=== PATIENT | female | born 1950 | race Caucasian/White ===

== ENCOUNTER 2022-05-31 05:54 | Day surgery (SDC) | payer MEDICARE, BC, SELFPAY ==
[2022-05-31 06:21] VITALS: BMI 30.8
[2022-05-31 06:39] VITALS: BP 154/68; PULSE 56; RESP 16; TEMP 36.7; O2SAT 95
[2022-05-31] MEDS: LACTATED RINGERS 1000 ML 1,000 ML 100 ML IV (06:42)
[2022-05-31] MEDS: SODIUM CHLORIDE 0.9 % (FLUSH) 10 ML SYRINGE IVF (06:42)
--- NOTE | 2022-05-31 06:52 | CRLHL7_ITS ---
For Patients: As a result of the Cures Act, medical imaging exams and procedure reports are released immediately into your electronic medical record. You may view this report before your referring provider. If you have questions, please contact your health care provider. Indication: 2ND AND 3RD HAMMERTOE REPAIR Technique: AP fluoroscopic image right foot. Fluoroscopic time 6.3 seconds. IMPRESSION: Fluoroscopic guidance for 2nd and 3rd hammertoe repair procedure. Dictated by Jose Manuel Hightower MD @ 05/31/2022 10:05:26 AM (Electronically Signed)
[2022-05-31] MEDS: CEFAZOLIN 1 GM inj IVP (07:25)
--- NOTE | 2022-05-31 08:04 | SUR.OPER ---
PATIENT QUESTIONS ANSWERED SATISFACTORILY PREOPERATIVELY. PATIENT BROUGHT TO OR #4 PER CART. Patient positioned supine on OR #4 bed. Perioperative team supported arms bilaterally on arm boards. Final approval of positioning by surgeon.
--- NOTE | 2022-05-31 08:29 | SUR.OPER ---
RIGHT FOOT IRRIGATION AT 08:29.
--- NOTE | 2022-05-31 09:03 | PM.ONB ---
Brief Operative Note Date of procedure: 05/31/22 Pre-op diagnosis: Hammertoes right foot digits 2, 3, 4 Implants: 0.045 smooth k-wires x 2, 2.0mm twist off screws Anesthesia: MAC Surgeon: Ricardo Norris Estimated blood loss (mL): 2 Tourniquet time (min): 77 Condition: stable Disposition: same day
[2022-05-31 09:10] VITALS: BP 123/75; PULSE 56; RESP 14; TEMP 36.1; O2SAT 96
--- NOTE | 2022-05-31 09:10 | W.ANESCHARGE ---
Anesthesia Charges Start Date/Time Anesthesia Start Date: 05/31/22 Anesthesia Start Time: 07:21 Stop Date/Time Anesthesia Stop Date: 05/31/22 Anesthesia Stop Time: 09:10 Summary Emergency: No Extremes of Age: Over 69-CPT 52190
[2022-05-31 09:15] VITALS: BP 133/67; PULSE 54; RESP 14; O2SAT 98
[2022-05-31 09:30] VITALS: BP 144/78; PULSE 54; RESP 16; O2SAT 98
[2022-05-31 09:45] VITALS: BP 141/76; PULSE 54; RESP 16; O2SAT 97
--- NOTE | 2022-05-31 10:06 | SUR.OPER ---
TIME OUT AT 07:27 PRIOR TO LOCAL INJECTION.
--- NOTE | 2022-05-31 21:28 | P.GSOP_ITS ---
Operative Note Date of procedure: 05/31/22 Type of Procedure: 1. Mili osteotomy 2nd metatarsal right 2. Hammertoe correction 2nd toe right 3. Hammertoe correction 3rd toe right 4. Flexor tenotomy 4th toe right Procedure Description: The patient was brought to the operating room and placed on the operating table in supine position.? Care was taken to pad the patient's pressure points.?? The patient was then placed under sedation by anesthesia and local anesthesia administered. The operative site was then prepped and draped in the usual sterile fashion.? A time-out was then performed. The right foot was exsanguinated and the tourniquet inflated to 250mmHg. Small stab incision made plantar 4th toe just distal to the PIPJ with [address] [place] [place] blade. The flexor tendon was transected completely. The toe position improved significantly. Linear incision made to the dorsal 3rd digit PIPJ. Incision taken down to the joint capsule. Transverse incision made through the extensor tendon and joint capsule. Medial and lateral collateral ligaments released. Sagittal saw was used to resect the head of the proximal phalanx and the base of the middle phalanx. The fusion was fixated with a 0.045 smooth k-wire. Position confirmed with c-arm. Linear incision made to the dorsal 2nd MPJ extending distal over the 2nd PIPJ. Blunt dissection carried down to the extensor tendon and joint capsule. Transverse incision made through the extensor tendons and dorsal joint capsule. The medial and lateral capsule were released. Next a Mili osteotomy performed with the capital fragment shifted 2mm proximal and 3mm medial. It was fixated with two 2.0mm twist off screws. The dorsal overhang was removed with a rongeur. The toe was now in recuts position in sagittal plane and improved in transverse plane. Transverse incision made through the extensor tendon and joint capsule at PIPJ. Medial and lateral collateral ligaments released. Sagittal saw was used to resect the head of the proximal phalanx and the base of the middle phalanx. The fusion was fixated with a 0.045 smooth k-wire. Position confirmed with c-arm. The plantar lateral and lateral joint capsule repaired with 2-0 fiberwire. The toe now rested in rectus position on all planes. K-wires were bent, cut and capped. C-arm images confirmed appropriate repair. Incisions thoroughly irrigated with normal saline. Extensor tendons at the PIPJ were repaired with 4-0 Vicryl. subcutaneous tissue repaired with 4-0 monocryl and skin closed with 4-0 prolene. Sterile dressing applied. tourniquet released and normal CFT returned to all digits. Well padded CAM boot placed. Transported [facility] [place] to [facility] with VSS and vascular status intact to right foot. The patient tolerated the procedure well. Discharge per anesthesia. Oxycodone for pain. WBAT to the heel. Follow up in clinic in 2 days. Ricardo Norris DPM FACFAS Implants: 0.045 smooth k-wires x 2, Arthrex 2.0mm twist off screws x2. Anesthesia: MAC Surgeon: Ricardo Norris DPM Estimated blood loss (mL): 2 Condition: stable Disposition: same day
== END 2022-05-31 10:39 | disposition home or self-care (01) ==
PROVIDERS: Visit Provider Podiatrist
PROC: (CPT 28285; principal; 2022-05-31 07:15)
PROC: (CPT 28285; 2022-05-31 07:15)
DX: M20.41 Other hammer toe(s) (acquired), right foot (principal)
CPT/HCPCS: 28285 ×3; 01462; 73620; 76000; 97161; 99100; C1713; J0690; J2250; J2405; J2704; J3010; J7120

== ENCOUNTER 2025-10-11 09:45 | Emergency (ER) | payer MEDICARE, BC, SELFPAY ==
[2025-10-11] VITALS (9 sets, daily range): BP systolic 179–188; BP diastolic 84–99; PULSE 45–52; RESP 15–25; TEMP 36.5; O2SAT 92–97; BMI 31.1
--- OUTSIDE RECORDS SUMMARY | 2025-10-11 09:47 | XMS_ITS | Clinical Summary ---
Author Organization [facility] Address [address] [place] [id number] Care Team Providers Care Dental Laboratory Technology Teacher Name Role Phone Rhys Kathleen RD Unavailable [phone] Symone So Unavailable Donna Garnica DO Primary Care Provider [phone] Allergies Active Allergy Reactions Criticality Noted Date Comments Unlisted Allergen (Include Detail In Comments) Hives 03/10/2017 Cats, dogs; Seasonal, gets hives in the summer Medications cholecalciferol (VITAMIN D) 1,000 unit capsule Take 1 capsule by mouth once daily. 0 016 Active albuterol HFA (Ventolin HFA) 90 mcg/actuation inhalerIndication s:FLORES (dyspnea on exertion) Inhale 1 Puff by mouth 4 times daily if needed for Shortness Of Breath or Wheezing. 1 Each 1 025 Active triamcinolone (ARISTOCORT; KENALOG) 0.1 % creamIndications: Chronic dermatitis Apply topically to affected area(s) two times daily. Up to 2 weeks for rash 45 g 025 Active budesonide-formot Jess (SYMBICORT,BREYNA ) 160-4.5 mcg/actuation (160-4.5 mcg each actuation) inhalerIndication s:FLORES (dyspnea on exertion) INHALE 2 PUFFS TWICE DAILY, RINSE MOUTH AFTER USING. 10.2 Each 6 025 Active Wegovy 0.25 mg/0.5 mL subcutaneous penIndications:Cl ass 1 obesity with body mass index (BMI) of 30.0 to 30.9 in adult, unspecified obesity type, unspecified whether serious comorbidity present Inject 0.25 mg subcutaneous once weekly. 2 mL 025 Active hydroCHLOROthiazi de 25 mg tabletIndications :Essential hypertension Take 1 Tablet (25 mg) by mouth once daily. 100 Tablet 1 025 Active atorvastatin (LIPITOR) 40 mg tabletIndications :Mixed hyperlipidemia TAKE 1 TABLET BY MOUTH AT BEDTIME 90 Tablet 1 025 Active atorvastatin 40 mg tabletIndications :Mixed hyperlipidemia TAKE 1 TABLET BY MOUTH AT BEDTIME 90 Tablet 1 025 2024 Discontinued Active Problems Problem Noted Date Diagnosed Date Moderate mitral regurgitation 06/25/2025 Overview (06/25/2025): Echocardiogram 06/2025 Vaping nicotine dependence, tobacco product 04/2025 Pulmonary nodules 08/26/2022 Overview (08/31/2023): CT 08/2022 stable. Repeat 08/30/23 stable, repeat in 9 months May 2024 Ascending aorta dilatation 08/05/2022 Overview (06/25/2025): Stress echocardiogram 07/2022. 4.2cm. annual echocardiogram. Vapes nicotine containing substance 06/18/2021 Essential hypertension 06/18/2021 Venous stasis 03/24/2017 Personal history of colonic polyps 07/12/2014 Overview (08/14/2024): Colonoscopy 06/2014 normal repeat in 5 years Colonoscopy 07/2019 normal, repeat in 5 years Colonoscopy 07/2024 normal, repeat in 10 years S/P hysterectomy 07/24/2013 Hyperlipidemia 03/24/2013 Vitamin D deficiency 04/21/2011 Uterine fibroid Overview (03/05/2009): s/p hysterectomy Rotator cuff (capsule) sprain and strain Overview (04/23/2009): R Resolved Problems Problem Noted Date Diagnosed Date Resolved Date Tobacco use disorder 03/05/2009 011 Tobacco use disorder 016 Major depression in remission 06/18/2021 Encounters Date Type Department Care Team Description 10/06/2025 Refill [facility] [address] [place] [address] Donna Garnica DO Refill Request (Atorvastatin) 09/16/2025 8:40 AM [facility] Orders Only [facility] [address] [facility] [address] [place] [address] <No scans attached> 09/16/2025 8:00 AM [facility] Ancillary Procedure [facility] [address] [facility] [address] [place] [address] 09/16/2025 Travel 09/11/2025 Travel 08/28/2025 Refill [facility] [address] [place] [address] Donna Garnica, Refill Request (Hydrochlorothiazide) 07/29/2025 Telephone [facility] [address] [place] [address] Symone So PA Prior Authorization (Wegovy 0.25 mg/0.5 mL subcutaneous pen APPROVED 06/29/25-01/25/26) 07/25/2025 10:30 AM CDT Office Visit [facility] [address] [facility] [place] [address] Symone So PA Consult (Initial) 07/24/2025 Travel from Last 3 Months Immunizations Immunization Administration Dates Next Due COVID-19 VACCINE SPIKEVAX (M ODERNA 50MCG/0.5ML) 12YO+ PFS 01/27/2024 COVID-19 vaccine (Moderna 100mcg/0.5mL) PF, MDV 02/05/2021,01/08/2021 COVID-19 vaccine (Moderna Pedro Pablo doris 50mcg/0.25mL) PF, MDV 05/14/2022 Influenza, High-dose Inactivated 024,08/10/2019,09/25/2018,08/27,09/13/2016,12/03/2015,09/05/2014 Influenza, High-dose Quadriv alent Inactivated 09/28/2020 Influenza, IIV3 (Age >=3 years) 07/24/2013,10/21 Influenza, Inactivated AIIV4 (Age 65+ Years) Preserv Free 01/27/2024,08/05/2022,09/16/2021 Pneumococcal Poly,23-Valent (Pneumovax) 10/28/2014 Pneumococcal conj 13-Valent (Prevnar 13) 12/03/2015 RSV, Recombinant ADJ Reconst ituted (Arexvy 120MCG/0.5mL) 11/09/2024 Td (Age >=7 Years) 04/02/2005 Tdap 05/14/2022,04/16/2011 Zoster (Shingrix-RZV, recombinant) 05/14/2022 Zoster (Zostavax-ZVL, live) 09/05/2014 Family History Medical History Relation Name Comments Alcoholism Father Heart Disease Father Hyperlipidemia Father Hypertension Father Cancer-breast Mother age 45, a t 72 Cancer Other cousin Genetic Other HTN- father, ao rtic aneurym, CHF Cancer-breast Sister Lindsey Heart Disease Sister Lindsey A Fib Anesthesia Malignant Hyperthermia No Family History Blood Disease No Family History Clotting disorder No Family History Relation Name Status Comments Father Mother Other Sister Lindsey Social History Tobacco Use Types Packs/Day Years Used Date Smoking Tobacco: Former Cigarettes 1 30 1 4 - 2013 Passive Smoke Exposure: Past Smokeless Tobacco: Never Tobacco Cessation:Counseling Given: Not Answered Comments:Smokes the Ecig Alcohol Use Standard Drinks/Week Comments Yes 0 (1 standard drink = 0.6 oz pur e alcohol) occ/social PHQ-2 Answer Date Recorded PHQ-2 TOTAL SCORE 0 06/03/2025 Social Connections Answer Date Recorded Do you often feel lonely or isolated from those around you? 0 11/19/2024 Alcohol Use Answer Date Recorded How often do you have a drink containing alcohol ? 1 07/25/2025 How many drinks containing a lcohol do you have on a typical day when you are drinking? 0 07/25/2025 How often do you have five or more drinks on one occasion? 0 07/25/2025 Financial Resource Strain Answer Date R ecorded Difficulty of Paying Living Expenses 3 11/19/2024 Difficulty of Paying Living Expenses Not on file 11/19/2024 Food Insecurity Answer Date Recorded Do you worry your food will run out before you are able to buy more? 1 11/19/2024 Transportation Needs Answer Date Record ed Does lack of transportation keep you from medica l appointments? 1 11/19/2024 Does lack of transportation keep you from work, meetings or getting things that you need? 1 11/19/2024 Housing Stability Answer Date Recorded What is your housing situation today? 1 11/19/2024 Utilities Answer Date Recorded Do you have trouble paying f or utilities (for example, heat, electricity, water, phone)? 1 11/19/2024 Comments No Sex and Gender Information Value Date Recorded Sex Assigned at Not on file Legal Sex Female 5:25 AM [facility] [employer] Gender Identity Not on file Sexual Orientation Not on file Obstetrics History Para Term AB IAB SAB Ectopic Multiple Livin g Live Births 6 6 6 0 0 3 Date Outcome GA Total Labor Labor/2nd/3rd Weight Sex Type Anes PTL Amarilys A1 A5 Name Clin Term Term Term Term Term Term Last Filed Vital Signs Vital Sign Reading Time Taken Comments Blood Pressure 138/76 06/10/2025 11:24 AM CDT Pulse 66 06/04/2025 1:21 PM CDT Temperature 36.6 C (97.8 F) 03/01/2025 2:55 PM CDT Respiratory Rate 16 06/03/2025 2:49 PM CDT Oxygen Saturation 96% 06/03/2025 2:49 PM CDT Inhaled Oxygen Concentration - - Weight 83.6 kg (184 lb 3.2 oz) 07/25/2025 10:00 AM CDT Height 165.1 cm (5' 5) 07/25/2025 10:00 AM CDT Body Mass Index 30.65 07/25/2025 10:00 AM CDT Plan of Treatment Health Maintenance Due Date Last Done Comments Zoster (shingles) series for age 50+ (3 of 3) 07/09/2022 05/14/2022, 09/05/2014 Influenza Vaccine (#1) 2025 , 01/27/2024, 08/05/2022, Additional history exists Depression screening for age 12+ 06/04/2026 06/04/2025, 06/03/2025, 05/29/2025, Additional history exists Medicare Wellness for age 65+ 06/04/2026 06/03/2025, 01/27/2024, 07/14/2022, Additional history exists BMI (ht and wt on same day) for age 18+ 07/25/2026 07/25/2025, 06/10/2025, 06/03/2025, Additional history exists Low Dose CT (for lung CA) age 50-80 09/16/2026 09/16/2025, 10/08/2024, 08/30/2023, Additional history exists Tetanus booster 05/14/2032 05/14/2022, 06/01/2011, 04/02/2005 DEXA/DXA scan for age 65+ Completed 10/29/2014 Hepatitis C screening for age 18-79 Completed 12/03/2015 Pneumococcal series for age 50+ Completed 12/03/2015, 10/28/2014 RSV vaccine for adults or Completed 11/09/2024 Hepatitis B series for 19+ Aged Out N o longer eligible based on patient's age to complete this topic Procedures Procedure Name Priority Date/Time Associated Diagnosis Comments CT CHEST W Routine 09/16/2025 8:38 AM [facility] Ascending aorta dilatation CREATININE,ISTAT Routine 09/16/2025 8:10 AM [facility] Observation or evaluation for suspected condition HEMOGLOBIN Routine 07/25/2025 12:02 PM CDT Class 1 obesity with body mass index (BMI) of 30.0 to 30.9 in adult, unspecified obesity type, unspecified whether serious comorbidity present VITAMIN B12 Routine 07/25/2025 12:02 PM CDT Class 1 obesity with body mass index (BMI) of 30.0 to 30.9 in adult, unspecified obesity type, unspecified whether serious comorbidity present TSH WITH REFLEX Routine 07/25/2025 12:02 PM CDT Class 1 obesity with body mass index (BMI) of 30.0 to 30.9 in adult, unspecified obesity type, unspecified whether serious comorbidity present Abnormal weight gain INSULIN Routine 07/25/2025 12:02 PM CDT Class 1 obesity with body mass index (BMI) of 30.0 to 30.9 in adult, unspecified obesity type, unspecified whether serious comorbidity present VITAMIN D 25 (DEFICIENCY) Routine 07/25/2025 12:02 PM CDT Class 1 obesity with body mass index (BMI) of 30.0 to 30.9 in adult, unspecified obesity type, unspecified whether serious comorbidity present ANTI HCV Routine 12/03/2015 12:01 PM [facility] Need for hepatitis C screening test XR DXA BONE DENSITY 2 SITES AXIAL Routine 10/29/2014 8:55 AM [facility] Post-menopausal from Last 3 Months or Most Recently Relevant to Health Maintenance Results * CT CHEST W (09/16/2025 8:38 AM [facility]) Anatomical Region Laterality Modality CHEST, THORAX, HEART Computed To mography 09/16/2025 9:34 AM [facility] Impressions 09/16/2025 9:34 AM [facility] 1. 4.2 centimeter ascending thoracic aortic aneurysm stable. Additional stable pulmonary nodules without enlarging nodules. [employer] GUID[employer]INES - SOLID NODULES: SINGLE LOW RISK - nodule less than 6 mm: No routine follow-up. - nodule 6-8 mm: CT at 6-12 months, then consider CT at 18-24 months. - nodule greater than 8 mm: Consider CT at 3 months, PET/CT or tissue sampling. SINGLE HIGH RISK - nodule less than 6 mm: Optional CT at 12 months. - nodule 6-8 mm: CT at 6-12 months, then CT at 18-24 months. - nodule greater than 8 mm: Consider CT at 3 months, PET/CT or tissue sampling. MULTIPLE LOW RISK - nodule less than 6 mm: No routine follow-up. - nodule 6-8 mm: CT at 3-6 months, then consider CT at 18-24 months. - nodule greater than 8 mm: CT at 3-6 months, then consider CT at 18-24 months. MULTIPLE HIGH RISK - nodule less than 6 mm: Optional CT at 12 months. - nodule 6-8 mm: CT at 3-6 months, then at 18-24 months. - nodule greater than 8 mm: CT at 3-6 months, then at 18-24 months. Please note that all CT scans at this facility use dose modulation, iterative reconstruction, and/or weight-based dosing when appropriate to reduce radiation dose to as low as reasonably achievable. Dictated by Arabella Heard MD @ 09/16/2025 9:34:55 AM (Electronically Signed) Narrative 09/16/2025 9:34 AM [facility] For Patients: As a result of the Cures Act, medical imaging exams and procedure reports are released immediately into your electronic medical record. You may view this report before your referring provider. If you have questions, please contact your health care provider. INDICATION: Ascending aorta dilatation TECHNIQUE: CT chest was acquired with 100 cc Omnipaque 350 IV contrast. Coronal and MIP reconstructions were performed. COMPARISON: CT 10/08/2024 FINDINGS: Lungs and pleura: Emphysema. 1.2 centimeter left lower lobe nodule stable 8/113. Seven millimeter subpleural left lower lobe nodule 8/110 stable. Small nodules are unchanged. A few additional Heart and vasculature: Heart size is normal. Ascending thoracic aortic aneurysm measuring 4.2 centimeters unchanged. Lymph nodes/mediastinum: No mediastinal, hilar, or axillary adenopathy. Chest wall: No masses. Upper abdomen: Small low-attenuation lesion right kidney probably reflects a small cyst Bones: Unremarkable for age. Procedure Note Arabella Heard MD - 09/16/2025 For Patients: As a result of the Cures Act, medical imagingexams and procedure reports are released immediately into your electronicmedical record. You may view this report before your referring provider.If you have questions, please contact your health care provider. INDICATION: Ascending aorta dilatation TECHNIQUE: CT chest was acquired with 100 cc Omnipaque 350 IV contrast. Coronal andMIP reconstructions were performed. COMPARISON: CT 10/08/2024 FINDINGS: Lungs and pleura: Emphysema. 1.2 centimeter left lower lobe nodule stable 8/113. Seven millimetersubpleural left lower lobe nodule 8/110 stable. Small nodules areunchanged. A few additional Heart and vasculature: Heart size is normal. Ascending thoracic aorticaneurysm measuring 4.2 centimeters unchanged. Lymph nodes/mediastinum: No mediastinal, hilar, or axillary adenopathy. Chest wall: No masses. Upper abdomen: Small low-attenuation lesion right kidney probably reflectsa small cyst Bones: Unremarkable for age. IMPRESSION: 1. 4.2 centimeter ascending thoracic aortic aneurysm stable. Additionalstable pulmonary nodules without enlarging nodules. [employer] GUIDELINES - SOLID NODULES: SINGLE LOW RISK - nodule less than 6 mm: No routine follow-up. - nodule 6-8 mm: CT at 6-12 months, then consider CT at 18-24 months. - nodule greater than 8 mm: Consider CT at 3 months, PET/CT or tissuesampling. SINGLE HIGH RISK - nodule less than 6 mm: Optional CT at 12 months. - nodule 6-8 mm: CT at 6-12 months, then CT at 18-24 months. - nodule greater than 8 mm: Consider CT at 3 months, PET/CT or tissuesampling. MULTIPLE LOW RISK - nodule less than 6 mm: No routine follow-up. - nodule 6-8 mm: CT at 3-6 months, then consider CT at 18-24 months. - nodule greater than 8 mm: CT at 3-6 months, then consider CT at 18-24months. MULTIPLE HIGH RISK - nodule less than 6 mm: Optional CT at 12 months. - nodule 6-8 mm: CT at 3-6 months, then at 18-24 months. - nodule greater than 8 mm: CT at 3-6 months, then at 18-24 months. Please note that all CT scans at this facility use dose modulation,iterative reconstruction, and/or weight-based dosing when appropriate toreduce radiation dose to as low as reasonably achievable. Dictated by Arabella Heard MD @ 09/16/2025 9:34:55 AM (Electronically Signed) us Donna Garnica DO CT Final Resul t * POCT Creatinine (09/16/2025 8:10 AM [facility]) POCT,CREATININ E, ISTAT 1.0 0.6 - 1.3 mg/dL 09/16/2025 8:22 AM [facility] Blood BLOOD SPECIMEN / Unknown [facility] / Unknown 09/16/2025 8:10 AM [facility] 09/16/2025 8:12 AM [facility] Donna Rm Nahun DO CHEMISTRY Final Resul t Performing Organization Address [facility] Co de Phone Number [facility] [address] [address], [facility] [address] [place] [address], [place] * TSH WITH REFLEX (07/25/2025 12:02 PM CDT) TSH W/REFLEX TO FT4 1.55 0.40 - 4.50 mIU/L 07/26/2025 4:53 AM CDT [facility] Blood BLOOD SPECIMEN / Unknown [facility] / Unknown 07/25/2025 12:02 PM CDT 07/25/2025 12:05 PM CDT Symone So PA CHEMISTRY F inal Result Performing Organization Address [facility] Co de Phone Number [email or web address] [address] [address], * VITAMIN D 25 (DEFICIENCY) (07/25/2025 12:02 PM CDT) VITAMIN D,25-OH,TOTAL,IA 56 30 - 100 ng/mL 07/26/2025 4:53 AM CDT [facility] Comment: Vitamin D Status 25-OH Vitamin D: Deficiency: <20 ng/mL Insufficiency: 20 - 29 ng/mL Optimal: > or = 30 ng/mL For 25-OH Vitamin D testing on patients on D2-supplementation and patients for whom quantitation of D2 and D3 fractions is required, the [facility](TM) 25-OH VIT D, (D2,D3), LC/MS/MS is recommended: order code [id number] (patients >2yrs). See Note 1 Note 1 For additional information, please refer to http://education.[employer]/faq/GPP927 (This link is being provided for informational/ educational purposes only.) Blood BLOOD SPECIMEN / Unknown [facility] / Unknown 07/25/2025 12:02 PM CDT 07/25/2025 12:05 PM CDT Symone DINERO SEND OUTS F inal Result Performing Organization Address City/[facility]/ZIP Co de Phone Number [facility] [address] [address], * HEMOGLOBIN (07/25/2025 12:02 PM CDT) HEMOGLOBIN 14.8 11.7 - 15.5 g/dL 07/26/2025 3:22 AM CDT [facility] MCV 88.4 80.0 - 100.0 fL 07/26/2025 3:22 AM CDT [facility] Blood BLOOD SPECIMEN / Unknown [facility] / Unknown 07/25/2025 12:02 PM CDT 07/25/2025 12:05 PM CDT us Symone DINERO HEMATOLOGY F inal Result Performing Organization Address [facility] de Phone Number [facility] [address] [address], * INSULIN (07/25/2025 12:02 PM CDT) INSULIN 10.9 uIU/mL 07/26/2025 1:59 PM CDT [facility] Comment: Reference Range < or = 18.4 Risk: Optimal < or = 18.4 Moderate NA High >18.4 Adult cardiovascular event risk category cut points (optimal, moderate, high) are based on Insulin Reference Interval studies performed at [facility] [facility] in 2021. Blood BLOOD SPECIMEN / Unknown [facility] / Unknown 07/25/2025 12:02 PM CDT 07/25/2025 12:05 PM CDT Symone DINERO SEND OUTS F inal Result Performing Organization Address [facility] Co de Phone Number [employer] [address] [address], [place] [phone] * VITAMIN B12 (07/25/2025 12:02 PM CDT) Pathologist [facility] VITAMIN B12 518 200 - 1100 pg/mL 07/26/2025 4:46 AM CDT [facility] Blood BLOOD SPECIMEN / Unknown [facility] / Unknown 07/25/2025 12:02 PM CDT 07/25/2025 12:05 PM CDT Symone DINERO CHEMISTRY F inal Result Performing Organization Address [facility] de Phone Number [employer] [address] [address], [place] [phone] * ANTI HCV [35642.2] (12/03/2015 12:01 PM [facility]) [facility] HEPATITIS C ANTIBODY Non-Reacti ve Non-Reacti ve 12/03/2015 7:51 PM [facility] Blood specimen (specimen) BLOOD SPECIMEN / Unknown [facility] / Unknown 12/03/2015 12:01 PM [facility] 12/03/2015 12:02 PM [facility] Narrative [facility] 12/03/2015 7:51 PM [facility] Antibodies to HCV not detected; does not exclude the possibility of exposure to HCV. Belle Hammer MD SEND OUTS Final Result Performing Organization Address [facility] Co de Phone Number [facility] [address] [place] [address], [place] * (ABNORMAL) XR DXA BONE DENSITY 2 SITES (10/29/2014 8:55 AM [facility]) Anatomical Region Laterality Modality Spine, HIPS, HIPL, HIPR Other Narrative 11/06/2014 10:57 AM [facility] Please see scanned document for results of this study. Procedure Note Pastora Helms PA - 11/06/2014 Please see scanned document for results of this study. us Belle aHmmer MD DEXA Final Result from Last 3 Months or Most Recently Relevant to Health Maintenance Insurance MEDICARE PB ONLY MEDICARE PART B HB ONLY Member Subscriber Plan / Payer (Ef fective 2014-Present) Name:Brett Villarrealyne Member ID:[id number] Relation to Subscriber:Self Name:Brett Villarrealyne Subscriber ID:[id number] Payer ID:Not on file Type:Not on file Address: ATTN: CLAIMS [address] [place] [phone] MEDICARE PART A HB ONLY BLUE [facility] [place] [address] Advance Directives Documents on File Type Date Recorded Patient Ancillary Services Manager Therapy Expl anation Healthcare Directive 06/05/2024 024 Care Teams Dental Laboratory Technology Teacher Relationship Specialty [place] [address] [place] [address] PCP - General Family Practice 09/16/[address] [place], [place] [id number] Department Secretary 08/26/25 Symone So PA [address] [facility] [address] [place], [place] [id number] Physician [employer] 07/25/25
--- NOTE | 2025-10-11 10:20 | CRLHL7_ITS ---
For Patients: As a result of the Century Cures Act, medical imaging exams and procedure reports are released immediately into your electronic medical record. You may view this report before your referring provider. If you have questions, please contact your health care provider. Indication: ABD PAIN. HX OF ANEURYSM Technique: CTA chest/abdomen/pelvis, aortic dissection protocol, with unenhanced CT of the chest and CTA chest/abdomen/pelvis utilizing 95 mL Isovue 370 Comparison: CT chest on September 16, 2025 Findings: Heart/vasculature: The heart is normal in size. No pericardial effusion. Coronary artery and aortic valve calcifications. No intramural hematoma of the thoracic aorta. No pulmonary embolism. Redemonstration of similar appearing aneurysmal dilatation of the ascending thoracic aorta measuring approximately 4.2 centimeters in AP dimension. There is no dissection, aneurysm, pseudoaneurysm, penetrating atherosclerotic ulcer, acute arterial occlusion, or rate limiting stenosis. Mild to moderate calcified and noncalcified atherosclerosis throughout the arterial system without significant stenosis. 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 Chest: No thyroid nodules. No thoracic lymphadenopathy. No focal airspace consolidation, pleural effusion, or pneumothorax. Minimal bibasilar linear atelectasis/scarring. Stable mild emphysematous changes. Stable 1.2 centimeter solid pulmonary nodule in the left lower lobe and additional smaller pulmonary nodules bilaterally, unchanged. Minimal mucosal secretions in the left of midline upper trachea; otherwise, the airways are clear. Abdomen/pelvis: The liver, gallbladder and biliary system, spleen, pancreas, and adrenal glands are unremarkable. Small splenule near the splenic hilum. The kidneys are normal in size and perfuse in a normal fashion. Low-density 1.3 centimeter right renal lesion with some questionable internal enhancing components, indeterminate. No renal calculi or hydroureteronephrosis. The bladder is unremarkable. Status post hysterectomy. No suspicious adnexal lesions. Tiny hiatal hernia. No evidence of bowel obstruction or inflammation. The appendix is normal. No free air, free fluid, or abscess. No abdominopelvic lymphadenopathy. Soft tissues/musculoskeletal: Tiny fat containing umbilical hernia and small fat containing right inguinal hernia. No acute fracture or malalignment. Mild multilevel degenerative changes throughout the spine with degenerative grade 1 anterolisthesis of L4 on L5. No suspicious osseous lesions. Impression: 1. No CT evidence of an acute process involving the chest, abdomen, or pelvis; specifically, no evidence of acute aortic syndrome. 2. Low-density 1.3 centimeter right renal lesion with some questionable internal enhancing components, indeterminate. Recommend correlation with prior imaging; otherwise, recommend outpatient CT or MR with a renal protocol for further assessment. 3. Stable pulmonary nodules. 4. No lymphadenopathy. Please note that all CT scans at this facility use dose modulation, iterative reconstruction, and/or weight-based dosing when appropriate to reduce radiation dose to as low as reasonably achievable. Dictated by Rodney Renae MD @ 10/11/2025 11:30:07 AM (Electronically Signed)
--- NOTE | 2025-10-11 10:21 | ED.ABDPAIN ---
HPI - Abdominal Pain General Chief Complaint: Abdominal Pain Stated Complaint: abdominal pain Time Seen by Provider: 10/11/25 09:52 History of Present Illness HPI narrative: This 75-year-old female comes in reporting upper epigastric abdominal pain that awoke her this morning. She states that it is a constant pain and it feels like somebody kicked her in the stomach. She rates that at 8/10 in severity. She does not report any fevers, nausea, vomiting, diarrhea, or shortness of breath. 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 She had a follow-up checkup a couple months ago and everything was stable in that regard. She arrives here with normal vital signs. She does have bradycardia but this is not new for her. Her blood pressure is elevated on arrival. Related Data Home Medications ?Medication ?Instructions ?Recorded ?Confirmed albuterol sulfate 90 mcg/actuation 1 inh inhalation QID PRN shortness 05/28/22 05/31/22 aerosol inhaler of breath or wheezing atorvastatin 40 mg tablet (Lipitor) 40 mg PO DAILY 05/28/22 05/31/22 cholecalciferol (vitamin D3) 25 1,000 unit PO DAILY 05/28/22 05/31/22 mcg (1,000 unit) capsule hydrochlorothiazide 25 mg tablet 25 mg PO DAILY 05/28/22 05/31/22 Previous Rx's ?Medication ?Instructions ?Recorded ketorolac 10 mg tablet 10 mg PO TID 5 days #15 tabs 10/11/25 pantoprazole 20 mg tablet,delayed 20 mg PO DAILY #20 tabs 10/11/25 release (Protonix) Allergies Allergy/AdvReac Type Severity Reaction Status Date / Time cat dander Allergy Verified 10/11/25 12:17 dog dander Allergy Verified 10/11/25 12:17 Review of Systems Status of ROS Reports: 10 or more systems reviewed and unremarkable except as noted in History and below Narrative Constitutional: No fevers, no weight gain or loss. Eyes: No discharge. No vision changes. HENT: No congestion, no sore throat, no ear pain. Cardiovascular: No chest pain, no palpitations. Respiratory: No shortness of breath, no wheezes, no cough. Gastrointestinal: No vomiting, no diarrhea. Abdominal pain as described above. The pain does not radiate to her back or up to her shoulder. Genitourinary: No dysuria, no hematuria. Musculoskeletal: Normal range of motion. Skin: No rashes, no pruritis. Neurological: No dizziness, weakness, sensory change, speech change. Endo/Heme/Allergies: No bruising or bleeding. No polydipsia. Pysch: no suicidality, no anxiety, no insomnia. All other systems reviewed and are negative. [facility] Medical History (Updated 10/11/25 @ 13:24 by Edmar Trevino MD) Essential (primary) hypertension ?I10 - Essential (primary) hypertension (ICD-10) Vapes nicotine containing substance ?Z72.0 - Tobacco use (ICD-10) Chronic venous stasis ?I87.8 - Other specified disorders of veins (ICD-10) Personal history of colonic polyps ?Z86.010 - Personal history of colonic polyps (ICD-10) Hyperlipidemia, unspecified ?E78.5 - Hyperlipidemia, unspecified (ICD-10) Vitamin D deficiency ?E55.9 - Vitamin D deficiency, unspecified (ICD-10) Strain of muscle(s) and tendon(s) of the rotator cuff of unspecified shoulder, initial encounter ?S46.019A - Strain of muscle(s) and tendon(s) of the rotator cuff of unspecified shoulder, initial encounter (ICD-10) Fibroid uterus ?D25.9 - Leiomyoma of uterus, unspecified (ICD-10) Surgical History (Updated 05/28/22 @ 13:00 by Shiraz Jain RN) H/O: hysterectomy ?Z90.710 - Acquired absence of both cervix and uterus (ICD-10) Social History Do you use any of these nicotine containing products: Vaping Products How often do you have a drink containing alcohol: monthly or less How many standard drinks containing alcohol do you have on a typical day: 1 or 2 How often do you have six or more drinks on one occasion: Never AUDIT-C Alcohol total score: 1 Non-prescribed substance use: denies use Caffeine: Yes Are you using contraception or practicing any form of control: No service: No Exam Narrative: Exam Narrative: Constitutional: Well-developed, well-nourished, no acute distress. HEENT: Normocephalic, atraumatic. Neck: Normal range of motion. Nontender. Supple. Heart: Regular. No murmurs. Bradycardia, rate 51 beats per minute. Intact distal pulses. Lungs: Clear to auscultation. No chest discomfort. No wheezes, rhonchi, or rales. Abdomen: Normal bowel sounds. Tenderness in the upper abdomen. No rebound tenderness. Genitalia: Deferred. Back: No midline tenderness. Normal range of motion. Extremities: Normal range of motion. No injury. Skin: Intact. No rash. Warm. No erythema or pallor. Neurologic: No altered sensation. No weakness. Alert and oriented. Psychiatric: No suicidality. No anxiety or depression. No insomnia. Nursing notes and vitals signs are reviewed. Const: Vital Signs, click to edit/add: Vital Signs - 24 hr 10/11/25 09:50 10/11/25 11:46 10/11/25 12:00 Temperature 97.7 F Pulse Rate 48 L 46 L Pulse Rate [Right Radial] 51 L Respiratory Rate 18 17 21 Blood Pressure Blood Pressure [Ri ght Upper Arm] 188/92 H Pulse Oximetry 97 93 94 Oxygen Delivery Me thod Room Air 10/11/25 12:02 10/11/25 12:15 10/11/25 12:30 Temperature Pulse Rate 47 L 50 L 45 L Pulse Rate [Right Radial] Respiratory Rate 20 16 25 H Blood Pressure 179/84 H Blood Pressure [Ri ght Upper Arm] Pulse Oximetry 95 97 97 Oxygen Delivery Me thod 10/11/25 12:32 10/11/25 12:45 10/11/25 13:04 Temperature Pulse Rate 51 L 49 L 52 L Pulse Rate [Right Radial] Respiratory Rate 15 20 22 Blood Pressure 186/99 H Blood Pressure [Ri ght Upper Arm] Pulse Oximetry 95 97 92 Oxygen Delivery Me thod Course Vital Signs Vital signs: Initial Vital Signs Temperature 97.7 F 10/11/25 09:50 Temperature Source Temporal Artery Scan 10/11/25 09:50 Pulse Rate 51 L 10/11/25 09:50 Respiratory Rate 18 10/11/25 09:50 Blood Pressure 188/92 H 10/11/25 09:50 Blood Pressure Mean 124 H 10/11/25 09:50 Pulse Oximetry 97 10/11/25 09:50 Oxygen Delivery Method Room Air 10/11/25 09:50 Vital Signs Temperature 97.7 F 10/11/25 09:50 Pulse Rate 51 L 10/11/25 09:50 Respiratory Rate 18 10/11/25 09:50 Blood Pressure 188/92 H 10/11/25 09:50 Pulse Oximetry 97 10/11/25 09:50 Oxygen Delivery Method Room Air 10/11/25 09:50 Temperature 97.7 F 10/11/25 09:50 Pulse Rate 52 L 10/11/25 13:04 Respiratory Rate 22 10/11/25 13:04 Blood Pressure 186/99 H 10/11/25 12:32 Pulse Oximetry 92 10/11/25 13:04 Oxygen Delivery Method Room Air 10/11/25 09:50 Medications Administered Medications: Discontinued Medications Generic Name Dose Route Start Last Admin Trade Name Freq PRN Reason Stop Dose Admin Lidocaine/Aluminum/Magnesium/Simeth 30 ml 10/11/25 12:20 10/11/25 12:58 Gi Cocktail (Visc Lido/Antacid) 30 Ml PO 10/11/25 12:21 30 ml ONCE ONE Administration Ondansetron HCl 4 mg 10/11/25 12:54 10/11/25 12:57 Ondansetron 2 Mg/Ml Inj IVP 10/11/25 12:55 4 mg ONCE ONE Administration MDM - Abdominal Pain MDM Narrative Medical decision making narrative: This 75-year-old female comes in with upper epigastric abdominal pain. 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 I did order CT scan with IV contrast and this returns with no acute findings. Additionally her lab results are reassuring. The patient then did receive a GI cocktail which brought some relief to her symptoms. Most likely her pain is related to a gastritis or reflux esophagitis. She is okay to be discharged home. I did provide a prescription for Protonix and some tablets of Toradol. She understands that Toradol is not a good long-term plan and itself may cause some GI symptoms. However the Protonix can protector in this regard. Lab Data Labs: Lab Results 10/11/25 Range/Units 10:45 WBC 11.13 H (4.50-11.00) K/uL RBC 5.11 (4.00-5.20) m/uL Hgb 14.5 (12.0-16.0) gm/dL Hct 44.3 (33.0-51.0) % MCV 87 (80-100) fL MCH 28 (26-34) pg MCHC 33 (32-36) gm/dL RDW Coeff of Nimo 13.1 (11.5-15.5) % Plt Count 226 (140-440) K/uL Neut % (Auto) 82.0 H (42.0-72.0) % Lymph % (Auto) 9.3 L (20-44) % [place] % (Auto) 5.3 (0.0-11.0) % Eos % (Auto) 2.8 (0.0-7.0) % Baso % (Auto) 0.4 (0.0-3.0) % Neut # (Auto) 9.10 H (1.7-7.0) K/uL Lymph # (Auto) 1.00 (0.90-2.90) K/uL [place] # (Auto) 0.60 (0.00-0.90) K/UL Eos # (Auto) 0.30 (0.00-0.50) K/uL Baso # (Auto) 0.00 (0.00-0.30) K/uL Abs Immat Gran (auto) 0.00 (0.00-0.30) K/uL Imm/Tot Granulo (auto) 0.2 % Sodium 138 (135-149) mmol/L Potassium 3.6 (3.6-5.1) mmol/L Chloride 106 (96-114) mmol/L Carbon Dioxide 27 (20-32) mmol/L Anion Gap 5 L (7-15) mEq/L BUN 23 (7-30) mg/dL Creatinine 0.8 (0.5-1.5) mg/dL Estimated Creat Clear 43.07 Estimated GFR 76 ml/min Glucose 111 (60-115) mg/dL Calcium 9.3 (8.4-10.6) mg/dL POC Troponin I High Sensi 10.3 (2.9-13.0) pg/mL ECG Data Attestation: I personally reviewed and interpreted this ECG as follows: Interpretation: EKG shows sinus bradycardia with 1st degree AV block. There are no specific ST or T-wave abnormalities. Rate is 46 beats per minute. Discharge Plan Discharge Clinical Impression: Abdominal pain Patient Disposition: Home, Self-Care Condition: Improved Additional Instructions: Take medications as prescribed. Follow up with MD return if symptoms are recurrent or worsening. Prescriptions: New ketorolac 10 mg tablet 10 mg PO TID 5 Days Qty: 15 0RF pantoprazole [Protonix] 20 mg tablet,delayed release (DR/EC) 20 mg PO DAILY Qty: 20 2RF No Action albuterol sulfate 90 mcg/actuation HFA aerosol inhaler 1 inh inhalation QID PRN (Reason: shortness of breath or wheezing) atorvastatin [Lipitor] 40 mg tablet 40 mg PO DAILY cholecalciferol (vitamin D3) 25 mcg (1,000 unit) capsule 1,000 unit PO DAILY hydrochlorothiazide 25 mg tablet 25 mg PO DAILY Follow Up/Referrals: Dada Sood Provider [Primary Care Provider, Family Practice] Stand Alone Forms: [employer] Info Instructions
[2025-10-11 10:55] LABS: Hematocrit* 44.3 % (33.0-51.0); Hemoglobin* 14.5 gm/dL (12.0-16.0); Immature Granulocytes Pct Auto 0.2 %; Mean Corpuscular HGB Conc 33 gm/dL (32-36); Mean Corpuscular Hemoglobin 28 pg (26-34); Mean Corpuscular Volume 87 fL (80-100); RDW Coefficient of Variation % 13.1 % (11.5-15.5); Red Blood Count* 5.11 m/uL (4.00-5.20); White Blood Count* 11.13 K/uL (4.50-11.00)
[2025-10-11 11:06] LABS: Chloride* 106 mmol/L (96-114); Sodium* 138 mmol/L (135-149)
[2025-10-11 11:07] LABS: Potassium* 3.6 mmol/L (3.6-5.1)
[2025-10-11 11:09] LABS: Blood Urea Nitrogen* 23 mg/dL (7-30); Creatinine* 0.8 mg/dL (0.5-1.5); Est. Creatinine Clearance* 43.07; Estimated Glomerular Filt Rate 76 ml/min
[2025-10-11 11:10] LABS: Anion Gap 5 mEq/L (7-15); Calcium* 9.3 mg/dL (8.4-10.6); Carbon Dioxide* 27 mmol/L (20-32); Glucose* 111 mg/dL (60-115)
[2025-10-11 11:23] LABS: Immature Granulocytes Abs Auto 0.00 K/uL (0.00-0.30); Lymphocytes Absolute Auto 1.00 K/uL (0.90-2.90); Slide Review Reflex No
[2025-10-11] MEDS: ONDANSETRON 2 MG/ML inj 4 MG IVP (12:57)
[2025-10-11] MEDS: GI COCKTAIL (VISC LIDO/ANTACID) 30 ML PO (12:58)
--- NOTE | 2025-10-11 13:04 | PC.NURSE ---
pt had emesis in room, denies improvement after emesis, zofran given prior to GI cocktail, pt ambulated to bathroom
== END 2025-10-11 13:35 | disposition home or self-care (01) ==
PROVIDERS: Emergency Provider Emergency Medicine Emergency Medical Services
DX: R10.13 Epigastric pain (principal); R00.1 Bradycardia, unspecified; I10 Essential (primary) hypertension; F17.290 Nicotine dependence, other tobacco product, uncomplicated; Z79.899 Other long term (current) drug therapy
CPT/HCPCS: 36415; 74174; 80048; 84484; 85025; 93005; 99284; 99285; A9270; J2405; Q9967